=== PATIENT | male | born 1955 | race Caucasian/White ===

== ENCOUNTER 2017-07-30 18:11 | Emergency (ER) | payer OTHER, MEDICAID ==
[~2017-07-30] VITALS: Ht 182.9 cm; Wt 117.8 kg
[2017-07-30] MEDS ORDERED: ACIDOPHILUS PR1 EACH PO (18:23)
[2017-07-30] MEDS ORDERED: TYLENOL325 MG PO (18:23)
[2017-07-30] MEDS ORDERED: PLAVIX 75 MG TA75 M1 PO (18:24)
[2017-07-30] MEDS ORDERED: CALCIUM 500 +1 EAC5 PO (18:24)
[2017-07-30] MEDS ORDERED: ALLOPURINOL 10100 M1 PO (18:24)
[2017-07-30] MEDS ORDERED: B-COMPLEX TABL0.4 MG PO (18:24)
[2017-07-30] MEDS ORDERED: OMEPRAZOLE 20 M20 M1 PO (18:25)
[2017-07-30] MEDS ORDERED: POTASSIUM20 PO (18:25)
[2017-07-30] MEDS ORDERED: LASIX 20 MG TAB20 MG PO (18:25)
[2017-07-30] MEDS ORDERED: NEURONTIN 300300 M1 PO (18:25)
[2017-07-30] MEDS ORDERED: SERTRALINE HCL50 MG PO (18:26)
[2017-07-30] MEDS ORDERED: DUONEB 2.5-0.5 M3 ML INH (18:26)
[2017-07-30] MEDS ORDERED: ALBUTEROL2.5 MG/31 INH (18:26)
[2017-07-30] MEDS ORDERED: MILK OF MA2400 MG/10 PO (18:27)
[2017-07-30] MEDS ORDERED: ULTRAM 50MG TAB50 MG PO (18:27)
[2017-07-30] MEDS ORDERED: EUCERIN CREME57 GM TOP (18:28)
[2017-07-30] MEDS ORDERED: DOXYCYCLINE 10100 MG PO (18:29)
[2017-07-30 18:57] LABS: ABSOLUTE EOSINOPHILS 0.1 thou/uL (0.0-0.7); ABSOLUTE MONOCYTES 0.3 thou/uL (0.0-1.2); ABSOLUTE NEUTROPHILS 2.5 thou/uL (1.6-8.1); BASOPHILS 0.7 %; EOSINOPHILS 2.3 %; HEMATOCRIT 34.8 % (42.0-52.0); HEMOGLOBIN 10.5 gm/dL (14.0-18.0); LYMPHOCYTES 24.7 %; MCH 24.6 pg (26.0-34.0); MCHC 30.3 g/dL (28.0-37.0); MCV 81.2 fL (80.0-100.0); MONOCYTES 8.6 %; MPV 6.5 fl. (7.2-11.1); NUCLEATED RBCS 0 /100WBC; PLATELET COUNT* 126 thou/uL (150-400); POLYS 63.7 %; RBC 4.28 mil/uL (4.50-6.00); RDW-CV 20.7 % (10.5-14.5)
[2017-07-30 19:08] LABS: APTT 29.9 Seconds (25.0-31.3); INR 1.2; PROTIME 11.6 Seconds (9.20-11.50)
[2017-07-30 19:11] LABS: BUN 7 mg/dL (7-18); CALCIUM 8.3 mg/dL (8.5-10.1); CHLORIDE 100 mmol/L (98-107); CREATININE 0.9 mg/dL (0.6-1.3); GLUCOSE 140 mg/dL (70-99); POTASSIUM 3.7 mmol/L (3.5-5.1); SODIUM 143 mmol/L (136-145)
[2017-07-30 19:16] LABS: ANISOCYTOSIS 2+; HYPOCHROMASIA 1+; PLATELET ESTIMATE DECREASED
[2017-07-30 19:21] LABS: CO2 > 45 mmol/L (21-32)
[2017-07-30 19:22] LABS: ALBUMIN 2.2 g/dL (3.4-5.0); ALKALINE PHOSPHATASE 88 U/L (46-116); CK-MB MASS < 0.5 ng/mL (<0.5-3.6); NT-PRO BRAIN NAT PEPTIDE 579 pg/mL (<300); SGOT 39 U/L (15-37); SGPT 19 U/L (30-65); TOTAL BILIRUBIN 0.8 mg/dL (<0.1-1.0); TOTAL PROTEIN 7.2 g/dL (6.4-8.2); TROPONIN-I LEVEL <0.06 ng/mL (<0.06)
[2017-07-30 19:39] LABS: BE 18.4 mmol/L (-2 to +3); PO2 70.3 mmHg (75.0-100.0)
[2017-07-30 19:41] LABS: PCO2 81.4 mmHg (35.0-45.0)
[2017-07-30 19:42] LABS: HCO3 47.1 mmol/L (22.0-26.0)
[2017-07-30 19:58] VITALS: BP 121/57
--- NOTE | 2017-07-31 15:59 | EKG ---
[place] [address] ELECTROCARDIOGRAM REPORT Name: SLOANE CARRILLO Room: [facility] ([place], [place])#: [id number] Admission: 07/30/17 Attend Phys: Discharge: 07/30/17 Date of : 53 Report #: [id number] THIS REPORT FOR: //name// [facility] ED Test Date: 2017-07-30 Test Time: 18:16:35 Pat Name: SLOANE CARRILLO Department: Room: Gender: M [employer]ofing Apprentice: JONELLE : 1955 Requested By: Aidan Nation Order Number: [id number] MD: Domingo Betancur Measurements Intervals [place] Rate: 81 P: -2 CO: 194 QRS: 3 QRSD: 108 T: 55 QT: 403 QTc: 468 Interpretive Statements Sinus rhythm Multiple ventricular premature complexes Anterior infarct, old Borderline ST elevation, lateral leads Baseline wander in lead(s) V3 Compared to ECG 03/03/2009 16:12:23 Ventricular premature complex(es) now present ST (T wave) deviation now present First degree AV block no longer present Myocardial infarct finding still present Electronically Signed On 07-31-2017 15:59:20 CDT by Domingo Betancur [email or web address] <ELECTRONICALLY SIGNED> By: Domingo Betancur MD, FACC 07/31/17 1559 15 1816 Domingo Betancur MD, FAC /EPI
== END 2017-07-30 19:49 | disposition short-term general hospital (02) ==
LOC: M.ERS 18:11
PROVIDERS: Family Medicine; Personal Emergency Response Attendant
DX: R56.9 Unspecified convulsions (principal); I11.0 Hypertensive heart disease with heart failure; I50.9 Heart failure, unspecified; M10.9 Gout, unspecified; M19.90 Unspecified osteoarthritis, unspecified site; E78.5 Hyperlipidemia, unspecified; K21.9 Gastro-esophageal reflux disease without esophagitis; G47.30 Sleep apnea, unspecified; Z90.49 Acquired absence of other specified parts of digestive tract; Z86.711 Personal history of pulmonary embolism